=== PATIENT | male | born 1950 | race Caucasian/White ===

== ENCOUNTER → 2020-11-26 | Outpatient (CLI) | payer OTHER ==
--- NOTE | 2020-11-26 11:38 | 2DMMODE ---
[facility] [address] [place] [address] 2 D/M-MODE ECHOCARDIOGRAM Name: PEPE WAGNER Room #: REG SUKUMAR Harden#: [id number] Admission: 11/26/20 Attend Phys: Marc Galan Discharge: Date of : 46 Report #: [id number] THIS REPORT FOR: cc: FAM - Family physician unknown FAM - Family physician unknown Rene Montelongo MD ~ APPROVED REPORT Study performed: 11/26/2020 10:04:53 EXAM: Comprehensive 2D, Doppler, and color-flow Echocardiogram Patient Location: Out-Patient Status: routine BSA: 1.91 HR: 67 bpm BP: 108/50 mmHg Rhythm: NSR/PVCs Other Information Study Quality: Adequate Indications CAD, COPD. 2D Dimensions RVDd: 33.92 mm IVSd: 12.05 (7-11mm) LVOT Diam: 20.75 (18-24mm) LVDd: 48.18 mm PWd: 12.25 (7-11mm) LVDs: 29.91 (25-40mm) Left Atrium: 39.53 (27-40mm) Aortic Root: 36.84 mm Volumes Left Atrial Volume (Systole) Single Plane 4CH: 81.48 mL Single Plane 2CH: 69.63 mL LA ESV Index: 41.00 mL/m2 Aortic Valve AoV Peak Amos.: 1.89 m/s AO Peak Gr.: 14.26 mmHg LVOT Max P.02 mmHg LVOT Max V: 1.42 m/s NIKA Vmax: 2.54 cm2 [facility] [address] [place] [address] 2 D/M-MODE ECHOCARDIOGRAM Name: PEPE WAGNER Room #: REG [facility].#: [id number] Admission: 11/26/20 Attend Phys: Marc Brooks Discharge: Date of : 46 Report #: [id number] Mitral Valve E/A Ratio: 1.2 MV Decel. Time: 228.26 ms MV E Max Amos.: 0.97 m/s MV A Amos.: 0.79 m/s MV PHT: 66.19 ms IVRT: 55.36 ms Pulmonary Valve PV Peak Amos.: 1.28 m/s PV Peak Gr.: 6.51 mmHg Pulmonary Vein P Vein S: 0.85 m/s P Vein D: 0.75 m/s P Vein S/D Ratio: 1.13 Tricuspid Valve TR Peak Amos.: 2.66 m/s TR Peak Gr.: 28.39 mmHg PA Pressure: 33.00 mmHg Left Ventricle The left ventricle is normal size. There is normal LV segmental wall motion. Mild concentric left ventricular hypertrophy. Left ventricular systolic function is normal. LVEF is 65%. Moderate diastolic dysfunction is present (pseudonormal filling). Right Ventricle The right ventricle is normal size. The right ventricular systolic function is normal. Atria Left atrium is moderately dilated. The right atrium size is normal. Aortic Valve The aortic valve is normal in structure; mildly calcified. Trace aortic regurgitation. There is no aortic valvular stenosis. Mitral Valve The mitral valve is normal in structure. Mild mitral regurgitation. No evidence of mitral valve stenosis. Tricuspid Valve The tricuspid valve is normal in structure. Mild tricuspid [facility] [address] [place] [address] 2 D/M-MODE ECHOCARDIOGRAM Name: PEPE WAGNER JERRICA Room #: REG [facility].#: [id number] Admission: 11/26/20 Attend Phys: Marc Brooks Discharge: Date of : 46 Report #: [id number] regurgitation. Estimated PAP is 33mmHg. Pulmonic Valve Pulmonic valve is not well visualized. There is no pulmonic valvular regurgitation. Great Vessels The aortic root is normal in size. The ascending aorta is normal in size. IVC is normal in size and collapses >50% with inspiration. Pericardium There is no pericardial effusion. <Conclusion> The left ventricle is normal size. Mild concentric left ventricular hypertrophy. Left ventricular systolic function is normal. Moderate diastolic dysfunction is present (pseudonormal filling). The right ventricle is normal size. Left atrium is moderately dilated. Trace aortic regurgitation. Mild mitral regurgitation. Mild tricuspid regurgitation. Estimated PAP is 33mmHg. <ELECTRONICALLY SIGNED> By: Rene Montelongo MD 11/26/20 [id number] Rene Montelongo MD /INF
== END ==
LOC: CV 10:42
PROVIDERS: ATTEND Chiropractor
DX: I08.3 Combined rheumatic disorders of mitral, aortic and tricuspid valves (principal); I25.10 Atherosclerotic heart disease of native coronary artery without angina pectoris